=== PATIENT | male | born 1990 | race Caucasian/White ===

== ENCOUNTER 2021-10-23 08:11 | Emergency (ER) | payer OTHER ==
[~2021-10-23 08:11] MED LIST: FLEXERIL5 MG PO; MOTRIN800 MG PO
== END 2021-10-23 09:18 | disposition home or self-care (01) ==
LOC: ED 08:11
DX: S61.012A Laceration without foreign body of left thumb without damage to nail, initial encounter (principal); W45.8XXA Other foreign body or object entering through skin, initial encounter; Y93.89 Activity, other specified; Y92.89 Other specified places as the place of occurrence of the external cause; Y99.8 Other external cause status